=== PATIENT | male | born 1990 | race Caucasian/White ===

== ENCOUNTER 2024-08-04 19:55 | Emergency (ER) | payer BC, SELFPAY ==
[2024-08-04 20:06] VITALS: BP 129/83; PULSE 94; RESP 16; TEMP 36.5; O2SAT 96; BMI 42.8
== END 2024-08-04 21:05 | disposition left against medical advice (07) ==
LOC: ED 20:55
DX: Z53.21 Procedure and treatment not carried out due to patient leaving prior to being seen by health care provider (principal)